=== PATIENT | female | born 1970 | race Caucasian/White ===

== ENCOUNTER → 2017-04-14 | Outpatient (CLI) | payer BC | LOC: MAMO 13:18 | DX: Z12.31 Encounter for screening mammogram for malignant neoplasm of breast (principal); Z78.0 Asymptomatic menopausal state | CPT/HCPCS: G0202 ==

== ENCOUNTER → 2022-05-12 | Outpatient (CLI) | payer BC | LOC: MAMO 10:17 | DX: Z12.31 Encounter for screening mammogram for malignant neoplasm of breast (principal) | CPT/HCPCS: 77063; 77067 ==

== ENCOUNTER → 2022-08-04 | Outpatient (CLI) | payer BC ==
[2022-08-04 08:21] LABS: BUN/CREATININE RATIO 22 (0-10)
== END ==
LOC: LAB 07:19
PROVIDERS: Nurse Practitioner Family
DX: E66.9 Obesity, unspecified (principal)
CPT/HCPCS: 80053; 80061; 83036; 84443